=== PATIENT | female | born 1955 | race Caucasian/White ===

== ENCOUNTER 2016-10-11 17:59 | Emergency (ER) | payer OTHER, MEDICAID ==
[~2016-10-11] VITALS: Ht 165.1 cm; Wt 113.4 kg
[2016-10-11 18:15] VITALS: BP 147/62
== END 2016-10-11 21:11 | disposition home or self-care (01) ==
LOC: ER 18:06
DX: H60.92 Unspecified otitis externa, left ear (principal); Z88.0 Allergy status to penicillin; Z88.2 Allergy status to sulfonamides